=== PATIENT | male | born 1965 | race Caucasian/White ===

== ENCOUNTER 2020-05-30 22:36 | Emergency (ER) | payer BC ==
--- NOTE | 2020-05-30 23:06 | EDM.PDOC ---
ED HPI GENERAL MEDICAL PROBLEM - General Chief Complaint: Flank Pain Stated Complaint: POSS KIDNEY STONE Time Seen by Provider: 05/30/20 23:06 - History of Present Illness INITIAL COMMENTS - FREE TEXT/NARRATIVE: 54-year-old male presents the emergency room with right-sided abdominal pain. Patient has had a history of multiple kidney stones in the past. He has had to have interventions because he said stones up to 8 mm. This 1 is been bothering him for the last day and a half. He denies fevers or chills no burning or frequency with urination. His last kidney stone was a little over a year ago. He has not been seen here for kidney stones in the past most of his kidney stones have been in [place]. Right Flank Pain Score (Numeric/FACES): 8 - Related Data Allergies Allergy/AdvReac Type Severity Reaction Status Date / Time No Known Allergies Allergy Verified 05/30/20 22:45 Home Meds: Home Meds Tamsulosin [Tamsulosin 24 Hr] 0.4 mg PO Q12H #20 cap.er 05/31/20 [Rx] Past Medical History HEENT History: Reports: Impaired Vision Cardiovascular History: Reports: None Respiratory History: Reports: None Gastrointestinal History: Reports: None Musculoskeletal History: Reports: Fracture Neurological History: Reports: None Psychiatric History: Reports: None Endocrine/Metabolic History: Reports: Obesity/BMI 30+ Hematologic History: Reports: None Immunologic History: Reports: None Oncologic (Cancer) History: Reports: None Dermatologic History: Reports: None - Infectious Disease History Infectious Disease History: Reports: None - Past Surgical History Male Surgical History: Reports: Lithotripsy (ES[facility]), Renal Calculus Musculoskeletal Surgical History: Reports: Other (See Below) Other Musculoskeletal Surgeries/Procedures:: Right arm surgery. Social & Family History - Tobacco Use Smoking Status *Q: Never Smoker - Caffeine Use Caffeine Use: Reports: None - Recreational Drug Use Recreational Drug Use: No ED ROS GENERAL - Review of Systems Review Of Systems: See Below Constitutional: Reports: No Symptoms HEENT: Reports: No Symptoms, Vertigo Cardiovascular: Reports: No Symptoms GI/Abdominal: Reports: Abdominal Pain. Denies: Constipation, Diarrhea, Nausea, Vomiting : Reports: Flank Pain. Denies: Dysuria, Frequency, Hematuria, Urgency Musculoskeletal: Reports: No Symptoms Skin: Reports: No Symptoms ED EXAM, GI/ABD - Physical Exam Exam: See Below Exam Limited By: No Limitations General Appearance: Alert, No Apparent Distress Head: Atraumatic, Normocephalic Respiratory/Chest: No Respiratory Distress, Lungs Clear, Normal Breath Sounds Cardiovascular: Regular Rate, Rhythm, No Edema, No Murmur GI/Abdominal Exam: Normal Bowel Sounds, Soft, Other (Patient is some vague right-sided discomfort minimally aggravated with palpation no rigidity rebound or guarding noted) Back Exam: Normal Inspection. No: CVA Tenderness (L), CVA Tenderness (R) Extremities: Normal Inspection, No Pedal Edema Neurological: Alert, Oriented, Normal Cognition Course - Vital Signs Last Recorded V/S: Last Vital Signs Temp 35.9 C L 05/30/20 22:42 Pulse 86 05/30/20 22:42 Resp 16 05/30/20 22:42 BP 157/105 H 05/30/20 22:42 Pulse Ox 97 05/30/20 22:42 - Orders/Labs/Meds Orders: Active Orders 24 hr Category Date Time Status Abdomen Pelvis wo Cont [CT] Stat Exams 05/30/20 23:29 Taken Lactated Ringers [Ringers, Lactated] 1,000 ml Med 05/30/20 23:30 Active IV ASDIRECTED Medication Orders Lactated Ringer's (Ringers, Lactated) 1,000 mls @ 100 mls/hr IV ASDIRECTED ELÍAS Last Admin: 05/30/20 23:39 Dose: 100 mls/hr Documented by: NORMA Labs: Laboratory Tests 05/30/20 05/30/20 05/30/20 Range/Units 22:53 23:39 23:39 WBC 10.07 H (4.23-9.07) K/mm3 RBC 5.19 (4.63-6.08) M/mm3 Hgb 15.7 (13.7-17.5) gm/dl Hct 46.8 (40.1-51.0) % MCV 90.2 (79.0-92.2) fl MCH 30.3 (25.7-32.2) pg MCHC 33.5 (32.2-35.5) g/dl RDW Std Deviation 46.6 H (35.1-43.9) fL Plt Count 241 (163-337) K/mm3 MPV 9.5 (9.4-12.3) fl Neut % (Auto) 77.6 H (34.0-67.9) % Lymph % (Auto) 12.3 L (21.8-53.1) % [place] % (Auto) 5.2 L (5.3-12.2) % Eos % (Auto) 3.8 (0.8-7.0) Baso % (Auto) 0.8 (0.1-1.2) % Neut # (Auto) 7.82 H (1.78-5.38) K/mm3 Lymph # (Auto) 1.24 L (1.32-3.57) K/mm3 [place] # (Auto) 0.52 (0.30-0.82) K/mm3 Eos # (Auto) 0.38 (0.04-0.54) K/mm3 Baso # (Auto) 0.08 (0.01-0.08) K/mm3 Manual Slide Review Abnormal smear Sodium 139 (136-145) mEq/L Potassium 3.9 (3.5-5.1) mEq/L Chloride 102 (98-107) mEq/L Carbon Dioxide 28 (21-32) mEq/L Anion Gap 12.9 (5-15) BUN 21 H (7-18) mg/dL Creatinine 1.1 (0.7-1.3) mg/dL Est Cr Clr Drug Dosing 74.98 mL/min Estimated GFR (MDRD) > 60 (>60) mL/min BUN/Creatinine Ratio 19.1 H (14-18) Glucose 136 H (74-106) mg/dL Calcium 9.2 (8.5-10.1) mg/dL Total Bilirubin 0.3 (0.2-1.0) mg/dL AST 25 (15-37) U/L ALT 43 (16-63) U/L Alkaline Phosphatase 75 (46-116) U/L Total Protein 7.7 (6.4-8.2) g/dl Albumin 4.1 (3.4-5.0) g/dl Globulin 3.6 gm/dL Albumin/Globulin Ratio 1.1 (1-2) Urine Color Yellow (Yellow) Urine Appearance Slt cloudy H (Clear) Urine pH 6.0 (5.0-8.0) Ur Specific [place] > or = 1.030 (1.005-1.030) Urine Protein 1+ H (Negative) Urine Glucose (UA) Negative (Negative) Urine Ketones 1+ H (Negative) Urine Occult Blood 3+ H (Negative) Urine Nitrite Negative (Negative) Urine Bilirubin Negative (Negative) Urine Urobilinogen 0.2 (0.2-1.0) Ur Leukocyte Esterase Negative (Negative) Urine RBC >100 H (0-5) /hpf Urine WBC 5-10 H (0-5) /hpf Ur Squamous Epith Cells 0-5 (0-5) /hpf Urine Bacteria Few (FEW) /hpf Urine Mucus Few (FEW) /hpf Meds: Medications Generic Name Dose Route Start Last Admin Trade Name Freq PRN Reason Stop Dose Admin Lactated Ringer's 1,000 mls @ 100 mls/hr 05/30/20 23:30 05/30/20 23:39 Ringers, Lactated IV 100 mls/hr ASDIRECTED ELÍAS Administration Discontinued Medications Generic Name Dose Route Start Last Admin Trade Name Freq PRN Reason Stop Dose Admin Hydromorphone HCl 0.5 mg 05/30/20 23:17 05/30/20 23:39 Dilaudid IVPUSH 05/30/20 23:18 0.5 mg ONETIME ONE Administration Tamsulosin HCl 0.4 mg 05/31/20 01:09 Flomax PO 05/31/20 01:10 ONETIME ONE - Re-Assessments/Exams Free Text/Narrative Re-Assessment/Exam: 05/31/20 01:13 The patient received a little bit of Dilaudid and is much more comfortable. He had a CT and his lab work done labs show a white count of about 10,000 urinalysis has shows microscopic hematuria no evidence of infection. Chemistries remarkable for BUN of [address] of the abdomen shows a 6 mm stone about 5 mm distal to the right renal pelvis. Patient has been given a dose of Flomax. He will be discharged with a prescription for Flomax and [place]. The Flomax he will miner pick at a pharmacy the [place] he will get #20 from the machine out in the waiting room 1 or 2 every 6 hours on an as-needed basis. We discussed constipation prevention techniques. Departure - Departure Time of Disposition: 01:14 Disposition: Home, Self-Care 01 Clinical Impression: Kidney stone on right side - Discharge Information Prescriptions: Tamsulosin [Tamsulosin 24 Hr] 0.4 mg PO Q12H #20 cap.er Referrals: PCP,Not In Area [Primary Care Provider] - Forms: ED Department Discharge Additional Instructions: Return to the emergency room with any questions problems or worsening symptoms. Return immediately if you develop any fevers. Follow-up with your regular healthcare provider early this next week. You have been given 2 prescriptions. The first is from the machine out in the waiting room this is for hydrocodone is a pain pill take 1 or 2 every 6 hours as needed for pain the second he will miner pick at the pharmacy of your choice is for Flomax you have been given #20 take 1 daily. Your first dose was given here in the emergency room. The pain medication can cause constipation if using on a regular basis start MiraLAX and use a stool softener. Sepsis Event Note (ED) - Evaluation Sepsis Screening Result: No Definite Risk - Focused Exam Vital Signs: Vital Signs Temp Pulse Resp BP Pulse Ox 05/30/20 22:42 35.9 C L 86 16 157/105 H 97 - My Orders Last 24 Hours: My Active Orders 05/30/20 23:29 Abdomen Pelvis wo Cont [CT] Stat 05/30/20 23:30 Lactated Ringers [Ringers, Lactated] 1,000 ml IV ASDIRECTED - Assessment/Plan Last 24 Hours: My Active Orders 05/30/20 23:29 Abdomen Pelvis wo Cont [CT] Stat 05/30/20 23:30 Lactated Ringers [Ringers, Lactated] 1,000 ml IV ASDIRECTED
[2020-05-30] MEDS ORDERED: HYDROmorphone 0.5 MG/0.5 ML Syringe IVPUSH ONE (23:17)
[2020-05-30] MEDS ORDERED: Lactated Ringers 1,000 ML IV SCH (23:30)
[2020-05-31] MEDS ORDERED: Tamsulosin 0.4 MG Cap.ER PO ONE (01:09)
--- NOTE | 2020-05-31 10:00 | CT ---
CT abdomen and pelvis Technique: Multiple axial sections were obtained from above the dome of the diaphragm inferiorly through the pubic symphysis. Intravenous contrast and oral contrast has not been given. Study has been performed as a ureteral stone protocol. Findings: Numerous small nonobstructing calculi are seen within both kidneys. Right kidney collecting system is dilated. Proximal ureter on the right side is dilated. These findings are caused by an approximate 6-7 mm obstructing stone within the proximal right ureter. Slight bibasilar atelectasis is noted. Areas of fatty infiltration are noted throughout the liver. Adrenal glands contain no nodule. Small gallstones appear to be present within the gallbladder. Pancreas shows no discrete abnormality. Aorta shows no aneurysm. No retroperitoneal adenopathy or mesenteric abnormalities are seen. No pelvic mass or adenopathy is seen. No bladder calculi are noted. Bone window settings were reviewed. Mild degenerative change is noted within the spine. No acute osseous abnormality is appreciated. Impression: 1. Multiple small nonobstructing calculi within both kidneys. 2. Obstructing 6-7 mm stone within the proximal right ureter. 3. Multiple small gallstones. Diagnostic code #3 Agree with preliminary report issued by [employer] ([facility] preliminary report dictated on 05/31/20, 1:53 AM Central Daylight Time) Study was dictated in MDT
== END 2020-05-31 01:28 | disposition home or self-care (01) ==
LOC: JD.ED 22:36
DX: N20.0 Calculus of kidney (principal); E66.9 Obesity, unspecified; Z68.35 Body mass index [BMI] 35.0-35.9, adult
CPT/HCPCS: 36415; 74176; 80053; 81001; 85025; 96374; 99284; A9270; J1170; J7120; 99283